=== PATIENT | female | born 1970 | race Caucasian/White ===

== ENCOUNTER → 2021-02-20 09:36 | Outpatient (CLI) | payer BC, SELFPAY ==
[2021-02-20 10:12] LABS: Coronavirus 19, PCR Not Detected (NotDetected); Influenza A, PCR Not Detected (NotDetected); Influenza B, PCR Not Detected (NotDetected)
== END ==
PROVIDERS: PCP Family Medicine; Visit Provider Family Medicine
DX: Z20.822 Contact with and (suspected) exposure to COVID-19 (principal)
CPT/HCPCS: U0003

== ENCOUNTER 2024-08-04 16:35 | Outpatient (CLI) | payer BC, SELFPAY ==
--- NOTE | 2024-08-04 16:55 | XR_ITS ---
PROCEDURE INFORMATION: Exam: XR Chest Exam date and time: 08/04/2024 4:56 PM Age: 54 years old Clinical indication: Cough; Additional info: Subacute cough TECHNIQUE: Imaging protocol: Radiologic exam of the chest. Views: 2 views. COMPARISON: No relevant prior studies available. FINDINGS: Lungs: Clear lungs. Pleural spaces: No pneumothorax. No sizable pleural effusion. Heart/Mediastinum: No cardiomegaly. Bones/joints: Unremarkable. IMPRESSION: Clear lungs.
[2024-08-04 17:22] LABS: Basophils # 0.1 K/mm3 (0-0.2); Basophils % 0.9 % (0.1-2.0); Eosinophils # 0.2 K/mm3 (0.0-0.4); Eosinophils % 2.7 % (0.1-12.0); Hemoglobin 12.9 g/dL (12.2-16.2); Lymphocytes # 2.4 K/mm3 (0.7-4.5); Lymphocytes % 32.7 % (10-50); Mean Corpuscular HGB Conc 33.1 g/dL (31.8-35.4); Mean Corpuscular Hemoglobin 29.8 pg (27.0-31.2); Mean Corpuscular Volume 90.1 fl (81-99); Mean Platelet Volume 9.7 fl (7.4-10.4); Monocytes # 0.5 K/mm3 (0.1-1.0); Monocytes % 6.2 % (1.7-9.3); Neutrophils # 4.2 K/mm3 (1.8-7.8); Neutrophils % 57.1 % (37.0-80.0); Platelet Count 436 K/mm3 (142-424); Red Blood Count 4.33 M/mm3 (4.20-5.40); Red Cell Distribution Width 11.8 % (11.5-17.5); White Blood Count 7.4 K/mm3 (4.8-10.8)
== END 2024-08-04 23:59 | disposition home or self-care (01) ==
LOC: LAB 16:37
PROVIDERS: PCP Family Medicine; Visit Provider Family Medicine
DX: R05.2 Subacute cough (principal)
CPT/HCPCS: 36415; 71046; 85025

== ENCOUNTER 2024-09-29 11:04 | Outpatient (POV) | payer BC, SELFPAY ==
--- NOTE | 2024-09-29 11:06 | EXP.PAIN.OV ---
HPI Data of Consult Patient: new to practice Consult date: 09/29/24 Requesting Physician: Mellissa Watson APRN Primary Care Provider: Osman Leon MD Consult Narrative Reason for consult: Bilateral feet pain History of present illness: Ms. Bullock is a 54 year old female who presents today as a new patient. She is a referral from Dr. Heart's office at [facility]. Today she rates her pain a 3 out of 10. Patient states that she has had bilateral pain/tingling since 2019 in her feet. Patient denies any specific trauma or injury that started these symptoms. Patient does state that it is aggravated with certain movements such as really hot days or being up on her feet all day. Patient feels like during those times that just feels like her feet are swollen. She states that she does still have sensation in her feet however certain movements will cause the worsening tingle like wiggling her toes. She states she will occasionally have sensations that go up into the backside of her calves but this is not constant and comes and goes randomly. Patient states that she has tried [id number] Tylenol and ibuprofen along with heat and ice and topicals with minimal relief. Patient states that she did get 2 right sided injections and 1 left side injection at the [facility] and they never really seem to provide consistent long-lasting relief. She did do laser treatment and this did seem to help along with physical therapy. Patient states that part of the physical therapy did include dry needling. She states that she has also tried supplements in the past to see if that would help with some of her pain. Patient is not interested in doing any type of medication that may cover up her pain sensations. Patient did have EMG testing that did show tarsal tunnel. 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 She states that she is still active enough that she walks 2 miles per day however she is still more sedentary than what she used to be and has gained even a little bit of weight. Patient states that she lost to exercise and dance and this pain has been aggravating.Patient is not on any current scheduled medications. Patient did present today in a walking boot unrelated to the problem she is coming to see us for. Patient states that she has a stress fracture that they are allowing it to heal on its own. Her Thomas has been reviewed and is appropriate. CC: Mellissa Watson APRN [facility] Disclaimer: The information contained in this section may have been updated after the patient was seen, as this information can be updated by other users. Medical History (Updated 09/29/24 @ 12:12 by Mellissa Watson APRN) Tarsal tunnel syndrome HLD (hyperlipidemia) Family History (Updated 09/29/24 @ 11:35 by Bethany Ray RN) Other Diabetes Hyperlipidemia Hypertension Social History Smoking Status: Never smoker alcohol intake: never current occupational status: other Travel in the last 8 weeks: None Review of Systems Review of Systems Review of systems:: pertinent systems reviewed and negative unless documented below Review of systems (narrative): Review of Systems: General: No recent weight changes, no fever, no sleep disturbances Respiratory: No cough, no shortness of air, no recurring pulmonary infections Cardiovascular/peripheral vascular: No chest pain, no palpitations, no edema, no shortness of breath Gastrointestinal: No new onset incontinence, normal bowel movements reported Genitourinary: No new onset incontinence Musculoskeletal: Bilateral feet pain Psychiatric: [Normal mood/affect] Neurological: [Denies weakness in extremities], [denies balance issues] Meds Home Medications and Allergies New Prescriptions to Start Prescriptions: Objective Narrative: Physical Exam: General: Alert and oriented x3, no acute distress, pleasant and cooperative Lungs: Respirations even and unlabored, symmetrical chest expansion Eyes: PERRL Musculoskeletal: Flexion and extension of right ankle within normal limits Neurological: Speech clear, no gross sensory deficit Assessment and Plan *Assessment and plan (1) Tarsal tunnel syndrome: Status: Acute Category: Medical Code(s): G57.50 - Tarsal tunnel syndrome, unspecified lower limb (2) Bilateral foot pain: Status: Acute Category: Medical Code(s): M79.671 - Pain in right foot; M79.672 - Pain in left foot Plan I did discuss with the patient that I will order her compounded cream. Patient has had injections in the past and did state they were very painful. I did discuss with patient in future she may benefit from an additional injections however at this time we will wait. Patient will return to clinic in 1 month for reevaluation of symptoms and plan of care. Patient has been instructed to contact the clinic with any concerns before the next appointment. Dr. Graves has reviewed this note and agrees with this plan of care. This note was dictated using voice recognition software and make contain errors or omissions. All injections are used with Lidocaine, Bupivacaine and Depo Medrol. Occasionally urine drug screen is needed to verify patient's compliance with our office pain contract. This is ordered based off specific treatments related to chronic pain with the potential to abuse certain medications.
[2024-09-29 11:31] VITALS: BP 117/72; PULSE 70; RESP 18; O2SAT 100; BMI 25.1
== END 2024-09-29 23:59 | disposition home or self-care (01) ==
PROVIDERS: PCP Family Medicine; Visit Provider Nurse Practitioner Family
DX: G57.50 Tarsal tunnel syndrome, unspecified lower limb (principal); M79.671 Pain in right foot; M79.672 Pain in left foot
CPT/HCPCS: 99202; G0463

== ENCOUNTER 2024-10-29 15:22 | Outpatient (POV) | payer BC, SELFPAY ==
[2024-10-29 15:37] VITALS: BP 122/69; PULSE 75; RESP 14; O2SAT 99; BMI 25.1
--- NOTE | 2024-10-29 15:55 | EXP.PAIN.SOA ---
[facility] Disclaimer: The information contained in this section may have been updated after the patient was seen, as this information can be updated by other users. Medical History (Updated 09/29/24 @ 12:12 by Mellissa Watson APRN) Tarsal tunnel syndrome HLD (hyperlipidemia) Surgical History H/O colonoscopy Hx of cholecystectomy Family History Other Diabetes Hyperlipidemia Hypertension Social History Smoking Status: Never smoker alcohol intake: never current occupational status: other Travel in the last 8 weeks?: None PM Subjective & Objective Subjective Subjective:: Patient is a pleasant 54-year-old female presents today for 6-week. Today she rates her pain a 2 out of 10. She denies any new changes from her last appointment. Patient did get her compounded cream and feels like this is helping. Patient states that she has been able to use it once a day and feels like it has made significant improvement. Patient does still have some pain in and around her foot that is worse with increased activity but overall feels like this is a good option for her without having to do anything more invasive. Patient is scheduled to go to [facility] coming up. Her Thomas has been reviewed and is appropriate. Review of Systems: General: No recent weight changes, no fever, no sleep disturbances Respiratory: No cough, no shortness of air, no recurring pulmonary infections Cardiovascular/peripheral vascular: No chest pain, no palpitations, no edema, no shortness of breath Gastrointestinal: No new onset incontinence, normal bowel movements reported Genitourinary: No new onset incontinence Musculoskeletal: Bilateral foot pain Psychiatric: [Normal mood/affect] Neurological: [Denies weakness in extremities], [denies balance issues] Pain at rest (0-10 scale): 2 Objective Objective:: Physical Exam: General: Alert and oriented x3, no acute distress, pleasant and cooperative Lungs: Respirations even and unlabored, symmetrical chest expansion Eyes: PERRL Musculoskeletal: Flexion and extension of lumbar [spine] within normal limits Neurological: Speech clear, no gross sensory deficit Has patient had previous pain injection?: No Conservative treatment options previously tried: Home exercise plan Length of treatment: Longer than 12 weeks Meds Home Medications and Allergies Home Medications ?Medication ?Instructions ?Recorded ?Confirmed ?Type meloxicam 7.5 mg tablet 7.5 mg PO DAILY Pain 09/29/24 10/29/24 History New Prescriptions to Start Prescriptions: Allergies Allergy/AdvReac Type Severity Reaction Status Date / Time No Known Allergies Allergy Verified 09/29/24 12:59 Assessment and Plan *Assessment and plan (1) Bilateral foot pain: Status: Acute Category: Medical Code(s): M79.671 - Pain in right foot; M79.672 - Pain in left foot (2) Tarsal tunnel syndrome: Status: Acute Category: Medical Code(s): G57.50 - Tarsal tunnel syndrome, unspecified lower limb Plan Patient is doing well with the compounded cream and does not require any additional interventions at this time. Patient will return to clinic in 3 months for reevaluation of symptoms and plan of care. Patient has been instructed to contact the clinic with any concerns before the next appointment. Dr. Graves has reviewed this note and agrees with this plan of care. This note was dictated using voice recognition software and make contain errors or omissions. All injections are used with Lidocaine, Bupivacaine and dexamethasone. Occasionally urine drug screen is needed to verify patient's compliance with our office pain contract. This is ordered based off specific treatments related to chronic pain with the potential to abuse certain medications.
== END 2024-10-29 23:59 | disposition home or self-care (01) ==
LOC: SC.PAIN 15:23
PROVIDERS: PCP Family Medicine; Visit Provider Nurse Practitioner Family
DX: M79.671 Pain in right foot (principal); M79.672 Pain in left foot; G57.50 Tarsal tunnel syndrome, unspecified lower limb
CPT/HCPCS: 99212; G0463